=== PATIENT | male | born 1970 | race Caucasian/White ===

== ENCOUNTER → 2017-10-30 | Outpatient (CLI) | payer OTHER ==
--- NOTE | 2017-10-30 15:35 | XR ---
Right shoulder HISTORY: Sprain right shoulder, pain 3 views of the right shoulder Bone mineralization, joint spaces and alignment are maintained. Mild clavicular joint arthropathy not ed. Right lung apex as visualized is normal. IMPRESSION: No acute abnormality
== END | disposition home or self-care (01) ==
LOC: RADXRMAIN 14:36
PROVIDERS: ATTEND Emergency Medicine
DX: S43.401A Unspecified sprain of right shoulder joint, initial encounter (principal)

== ENCOUNTER 2022-04-21 20:09 | Emergency (ER) | payer BC, OTHER ==
[2022-04-21 20:28] VITALS: TEMP 98.3
--- NOTE | 2022-04-21 20:48 | XR ---
EXAMINATION TYPE: XR finger RT DATE OF EXAM: 04/21/2022 COMPARISON: NONE HISTORY: Trauma. Pain. TECHNIQUE: 3 views FINDINGS: There is transverse fracture across the base of the distal phalanx of the right thumb. Frac ture line also extends to the articular surface. There is soft tissue laceration deformity. There is significant displacement of the posterior fragment. There are small densities adjacent to the head of the proximal phalanx that could be foreign bodies. IMPRESSION: Intra-articular fracture of the distal phalanx of the right thumb. Possible foreign lior s.
--- NOTE | 2022-04-21 21:45 | ED ---
Wound/Laceration HPI - General Chief Complaint: Wound/Laceration Stated Complaint: Laceration/Broken thumb Time Seen by Provider: 04/21/22 21:38 Source: patient, family Mode of arrival: ambulatory Limitations: no limitations - Related Data Allergies Allergy/AdvReac Type Severity Reaction Status Date / Time No Known Allergies Allergy Verified 04/21/22 20:28 Review of Systems ROS Statement: Those systems with pertinent positive or pertinent negative responses have been documented in the HPI. ROS Other: All systems not noted in ROS Statement are negative. Past Medical History Past Medical History: Hypertension History of Any Multi-Drug Resistant Organisms: None Reported Past Surgical History: No Surgical Hx Reported Past Psychological History: No Psychological Hx Reported Smoking Status: Never smoker Past Alcohol Use History: None Reported Past Drug Use History: None Reported General Exam Limitations: no limitations Course Vital Signs 04/21/22 20:23 Temperature 98.3 F Pulse Rate 95 Respiratory 20 Rate Blood Pressure 210/89 O2 Sat by Pulse 97 Oximetry Disposition Clinical Impression: Laceration, Fracture of thumb, right open Disposition: HOME SELF-CARE Condition: Good Is patient prescribed a controlled substance at d/c from ED?: No Referrals: Janiya Mcleod DO [Doctor of Osteopathic Medicine] - 1-2 days
[2022-04-21] MEDS ORDERED: HYDROmorphone 1 MG/ML 1 ML SYRINGE IVP STA (21:50)
[2022-04-21] MEDS ORDERED: SODIUM CHLORIDE 0.9% 1,000 ML IV STA (21:50)
[2022-04-21] MEDS ORDERED: DIPH,PERTUS(ACELL)TETVAC-LF 0.5 ML VIAL IM ONE (21:50)
[2022-04-21] MEDS ORDERED: PROPOFOL 10 MG/ML 20 ML VIAL IV ONE (22:52)
[2022-04-21] MEDS ORDERED: ONDANSETRON 4 MG ODT STARTER PACK 2 TAB BTL PO STA (23:26)
[2022-04-21] MEDS ORDERED: ACET/COD 300 MG/30 MG STARTER PACK 6 TAB BTL PO STA (23:26)
[2022-04-21] MEDS ORDERED: CEPHALEXIN 500MG STARTER PACK 4 CAP BTL PO STA (23:26)
--- NOTE | 2022-04-22 00:02 | XR ---
EXAMINATION TYPE: XR hand limited RT DATE OF EXAM: 04/21/2022 COMPARISON: Today HISTORY: Post reduction TECHNIQUE: 2 views FINDINGS: There is comminuted fracture of the base of the proximal phalanx of the distal phalanx of t he right thumb. There is large posterior fracture fragment. There are multiple bony densities on the lateral aspect of the IP joint as well. IMPRESSION: Comminuted intra-articular fracture of the base of the distal phalanx without significant change in position compared to initial exam. No dislocation.
[2022-04-22 03:58] VITALS: BP 160/97; PULSE 67; RESP 19
== END 2022-04-22 01:00 | disposition home or self-care (01) ==
LOC: EC 20:09
DX: S62.501B Fracture of unspecified phalanx of right thumb, initial encounter for open fracture (principal); Z23 Encounter for immunization; I10 Essential (primary) hypertension
CPT/HCPCS: 73120; 73140; 90715; 99283; 96365; 96366; 96375 ×2; 96361 ×2; 90471; J0690; J1170; J2704